=== PATIENT | female | born 2000 | race Two or more races ===

== ENCOUNTER 2023-02-25 06:00 | Inpatient (IN) | payer OTHER ==
[~2023-02-25] VITALS: Ht 167.6 cm; Wt 2.3 kg
[2023-02-25] MEDS ORDERED: INTEGRA CAPSUL1 EACH PO (06:07)
[2023-02-25] MEDS ORDERED: FOLIC ACID20 MG PO (06:07)
[2023-02-25] MEDS ORDERED: PRENATAL + DHA1 EAC1 PO (06:07)
[2023-02-25] MEDS ORDERED: NIFEDIPINE20 MG PO (06:08)
[2023-02-25 08:07] LABS: URINE APPEARANCE Cloudy; URINE BILIRRUBIN Small (NEGATIVE); URINE BLOOD Negative; URINE COLOR Dark Yellow; URINE GLUCOSE Negative (NEGATIVE); URINE LEUKOCYTE Small; URINE NITRATE Negative
[2023-02-25 08:13] LABS: URINE EPITHELIAL CELLS 138.4 uL (0.0-38.8); URINE RBC 5.1 uL (0.0-20.8); URINE WBC 40.8 uL (0.0-23.2)
[2023-02-25 08:24] LABS: HEMATOCRIT 33.2 % (36.0-45.00); HEMOGLOBIN 11.7 g/dL (12.0-15.00); MEAN CELL VOLUME 92.6 fL (80.00-100.00); MEAN CORPUSCULAR HEMOGLOBIN 32.5 pg (27.00-32.0); MEAN CORPUSCULAR HGB CONC 35.1 g/dl (32.0-36.0); PLATELET COUNT 155 K/uL (150-450); RED BLOOD COUNT 3.59 M/uL (4.00-6.00); RED CELL DISTRIBUTION WIDTH 13.4 % (11.5-14.5)
[2023-02-25 08:41] LABS: INR < 0.93; PARTIAL THROMBOPLASTIN TIME 28.2 SECONDS (22.0-34.0); PROTHROMBIN TIME 9.4 SECONDS (9.0-11.5)
[2023-02-25 09:17] LABS: ALBUMIN 2.7 gm/dL (3.4-5.0); BILIRUBIN TOTAL 0.67 mg/dL (0.3-1.2); CALCIUM 8.7 mg/dL (8.5-10.1); CREATININE SERUM 0.83 mg/dL (0.55-1.02); GFR 86.78; GLOBULINA 3.7 G/DL (2.4-3.5); POTASSIUM 4.37 mEq/L (3.5-5.1); TOTAL PROTEIN 6.4 gm/dL (6.4-8.2)
[2023-02-25 09:21] LABS: URINE PROTEIN 100 (NEGATIVE)
[2023-02-25 13:54] LABS: HEMOGLOBIN 11.7 g/dL (12.0-15.00); MEAN CELL VOLUME 92.8 fL (80.00-100.00); MEAN CORPUSCULAR HEMOGLOBIN 31.9 pg (27.00-32.0); MEAN CORPUSCULAR HGB CONC 34.4 g/dl (32.0-36.0); PLATELET COUNT 181 K/uL (150-450); RED BLOOD COUNT 3.67 M/uL (4.00-6.00); RED CELL DISTRIBUTION WIDTH 13.5 % (11.5-14.5)
[2023-02-26 07:21] LABS: HEMATOCRIT 24.1 % (36.0-45.00); MEAN CELL VOLUME 92.7 fL (80.00-100.00); MEAN CORPUSCULAR HGB CONC 35.5 g/dl (32.0-36.0); PLATELET COUNT 139 K/uL (150-450); RED CELL DISTRIBUTION WIDTH 13.6 % (11.5-14.5)
[2023-02-26 07:22] LABS: HEMOGLOBIN 8.6 g/dL (12.0-15.00)
[2023-02-27 07:05] LABS: MEAN CELL VOLUME 91.9 fL (80.00-100.00); MEAN CORPUSCULAR HGB CONC 35.2 g/dl (32.0-36.0); PLATELET COUNT 151 K/uL (150-450); RED BLOOD COUNT 2.32 M/uL (4.00-6.00); RED CELL DISTRIBUTION WIDTH 13.8 % (11.5-14.5)
[2023-02-27 07:47] LABS: MEAN CORPUSCULAR HEMOGLOBIN 32.3 pg (27.00-32.0)
[2023-02-27 07:48] LABS: HEMATOCRIT 21.3 % (36.0-45.00); HEMOGLOBIN 7.5 g/dL (12.0-15.00)
[2023-02-28 01:47] LABS: HEMATOCRIT 28.9 % (36.0-45.00); MEAN CELL VOLUME 91.7 fL (80.00-100.00); MEAN CORPUSCULAR HGB CONC 35.3 g/dl (32.0-36.0); PLATELET COUNT 174 K/uL (150-450); RED BLOOD COUNT 3.15 M/uL (4.00-6.00); RED CELL DISTRIBUTION WIDTH 13.7 % (11.5-14.5)
[2023-02-28 01:55] LABS: HEMOGLOBIN 10.2 g/dL (12.0-15.00); MEAN CORPUSCULAR HEMOGLOBIN 32.3 pg (27.00-32.0)
[2023-02-28 10:35] LABS: HEMATOCRIT 28.9 % (36.0-45.00); HEMOGLOBIN 10.2 g/dL (12.0-15.00); MEAN CELL VOLUME 91.9 fL (80.00-100.00); MEAN CORPUSCULAR HEMOGLOBIN 32.3 pg (27.00-32.0); MEAN CORPUSCULAR HGB CONC 35.2 g/dl (32.0-36.0); PLATELET COUNT 175 K/uL (150-450); RED BLOOD COUNT 3.14 M/uL (4.00-6.00); RED CELL DISTRIBUTION WIDTH 14.3 % (11.5-14.5)
[2023-02-28 11:19] LABS: ALBUMIN 2.4 gm/dL (3.4-5.0); BILIRUBIN TOTAL 0.41 mg/dL (0.3-1.2); CALCIUM 8.5 mg/dL (8.5-10.1); CREATININE SERUM 0.64 mg/dL (0.55-1.02); GFR 117.14; GLOBULINA 2.8 G/DL (2.4-3.5); POTASSIUM 4.26 mEq/L (3.5-5.1); TOTAL PROTEIN 5.2 gm/dL (6.4-8.2)
[2023-03-02] MEDS ORDERED: LABETALOL HCL200 MG (21:52)
== END 2023-03-01 15:39 | disposition home or self-care (01) | DRG 786 ==
LOC: OB/GYN 06:00 → LDR 06:00 → O/R 09:24 → OB/GYN 10:12
PROVIDERS: Specialist; ADMIT Specialist; ATTEND Specialist
PROC: 4A1HXCZ Monitoring of Products of Conception, Cardiac Rate, External Approach (ICD-10-PCS; 2023-02-25)
PROC: 10D00Z1 Extraction of Products of Conception, Low, Open Approach (ICD-10-PCS; principal; 2023-02-25 09:15)
PROC: 30233N1 Transfusion of Nonautologous Red Blood Cells into Peripheral Vein, Percutaneous Approach (ICD-10-PCS; 2023-02-27)
DX: O32.2XX2 Maternal care for transverse and oblique lie, fetus 2 (principal); O60.14X2 Preterm labor third trimester with preterm delivery third trimester, fetus 2; D62 Acute posthemorrhagic anemia; O30.033 Twin pregnancy, monochorionic/diamniotic, third trimester; O99.02 Anemia complicating childbirth; Z3A.34 34 weeks gestation of pregnancy; Z37.2 Twins, both liveborn

== ENCOUNTER 2023-03-02 21:44 | Inpatient (IN) | payer OTHER ==
[~2023-03-02] VITALS: Ht 167.6 cm; Wt 59.9 kg
[~2023-03-02 21:44] MED LIST: FOLIC ACID20 MG PO; INTEGRA CAPSUL1 EACH PO; NIFEDIPINE20 MG PO; PRENATAL + DHA1 EAC1 PO
[2023-03-02] MEDS ORDERED: LABETALOL HCL200 MG (21:52)
[2023-03-03 00:02] LABS: HEMATOCRIT 32.9 % (36.0-45.00); HEMOGLOBIN 11.3 g/dL (12.0-15.00); MEAN CELL VOLUME 92.2 fL (80.00-100.00); MEAN CORPUSCULAR HEMOGLOBIN 31.5 pg (27.00-32.0); MEAN CORPUSCULAR HGB CONC 34.2 g/dl (32.0-36.0); PLATELET COUNT 250 K/uL (150-450); RED BLOOD COUNT 3.57 M/uL (4.00-6.00); RED CELL DISTRIBUTION WIDTH 14.1 % (11.5-14.5)
[2023-03-03 00:11] LABS: ALBUMIN 2.8 gm/dL (3.4-5.0); BILIRUBIN TOTAL 0.39 mg/dL (0.3-1.2); CALCIUM 9.3 mg/dL (8.5-10.1); CREATININE SERUM 0.66 mg/dL (0.55-1.02); GFR 113.05; POTASSIUM 4.04 mEq/L (3.5-5.1); TOTAL PROTEIN 6.8 gm/dL (6.4-8.2)
[2023-03-03 00:39] LABS: PH,URINE 7.5 (5.0-8.0); URINE APPEARANCE Clear; URINE BILIRRUBIN Negative (NEGATIVE); URINE BLOOD NHT; URINE COLOR Yellow; URINE GLUCOSE Negative (NEGATIVE); URINE LEUKOCYTE Trace; URINE NITRATE Negative; URINE PROTEIN Negative (NEGATIVE)
[2023-03-03 00:42] LABS: URINE BACTERIA 17.6 uL (0.0-1933); URINE RBC 8.7 uL (0.0-20.8); URINE WBC 14.8 uL (0.0-23.2)
[2023-03-03 00:54] LABS: URINE EPITHELIAL CELLS 1.3 uL (0.0-38.8)
== END 2023-03-04 14:12 | disposition home or self-care (01) | DRG 776 ==
LOC: ER 21:44 → LDR 03-03 08:39
PROVIDERS: ADMIT Specialist; ATTEND Specialist
DX: O16.5 Unspecified maternal hypertension, complicating the puerperium (principal); Z20.822 Contact with and (suspected) exposure to COVID-19; O90.81 Anemia of the puerperium; D64.9 Anemia, unspecified

== ENCOUNTER 2023-05-09 23:11 | Emergency (ER) | payer OTHER ==
[~2023-05-09] VITALS: Ht 167.6 cm; Wt 57.2 kg
[~2023-05-09 23:11] MED LIST changes: +LABETALOL HCL200 MG
[2023-05-09] MEDS ORDERED: PRENATAL + DHA1 EAC1 (23:30)
[2023-05-10] MEDS ORDERED: IBUprofen 800 MG TABLET PO STA (04:58)
== END 2023-05-10 05:18 | disposition home or self-care (01) ==
LOC: ER 23:11
DX: N61.0 Mastitis without abscess (principal)